=== PATIENT | female | born 1945 | race Caucasian/White ===

== ENCOUNTER 2017-12-10 13:36 | Inpatient (IN) | payer MEDICARE ==
[~2017-12-10] VITALS: Ht 162.6 cm; Wt 60.9 kg
[~2017-12-10 13:36] MED LIST: ASPI-515 PO; ASPI325T17 PO; ATOR40TA PO; CARV6.252 PO; CLOP75TA52 PO; DOCU-131 PO; ENOX40SY4 SQ; FAMO20TA7 PO; HYDR-3237 PO; HYDR-3241 PO; HYDR25TA6 PO; LISI40TA PO; LORA-446 PO; POLY17PO5 PO; SIMV20TA PO; SIMV20TA3 PO; VITAMIN B6
[2017-12-10] MEDS ORDERED: SODIUM CHLORIDE 0.9% 1,000 ML IV ONE (16:09)
[2017-12-10] MEDS ORDERED: SODIUM CHLORIDE FLUSH 10ML SYR IVF ONE (16:30)
[2017-12-10 16:42] LABS: BASOPHILS # (AUTO) 0.06 x10^3/uL (0-0.1); BASOPHILS % (AUTO) 1 % (0-1); EOSINOPHILS % (AUTO) 1 % (1-7); LYMPHOCYTES # (AUTO) 2.37 x10^3/uL (1-3.4); LYMPHOCYTES % (AUTO) 27 % (22-44); MD NO; MEAN CORPUSCULAR HEMOGLOBIN 34.4 pg (27.0-34.8); MEAN CORPUSCULAR HGB CONC 34.5 g/dL (32.4-35.8); MEAN CORPUSCULAR VOLUME 99.7 fL (80-100); MEAN PLATELET VOLUME 8.3 fL (7.4-10.4); MONOCYTES % (AUTO) 8 % (2-9); NEUTROPHILS % (AUTO) 63 % (42-75); PLATELET COUNT 263 x10^3/uL (130-400); RED CELL DISTRIBUTION WIDTH 13.5 % (9.6-15.2)
[2017-12-10 16:47] LABS: INTERNATIONAL NORMALIZED RATIO 0.9 (0.93-1.1); PROTHROMBIN TIME 9.4 Seconds (9.6-11.5)
[2017-12-10 16:52] LABS: ALBUMIN 3.9 g/dL (3.4-5.0); ANION GAP 7 mmol/L (5-15); CALCIUM 9.5 mg/dL (8.5-10.1); CHLORIDE 105 mmol/L (98-107); CREATININE 0.84 mg/dL (0.55-1.02)
[2017-12-10] MEDS ORDERED: DOCUSATE 100 MG CAPSULE PO PRN (18:00)
[2017-12-10] MEDS ORDERED: BISACODYL 10 MG SUPP PR PRN (18:00)
[2017-12-10] MEDS: ENOXAPARIN 40 MG/0.4 ML SQ SCH (18:00)
[2017-12-10] MEDS ORDERED: ENALAPRILAT 1.25 MG/ML, 2ML IVPush PRN (18:00)
[2017-12-10] MEDS ORDERED: POLYETHYLENE GLYCOL 17 GM PACKET PO PRN (18:00)
[2017-12-10] MEDS ORDERED: ACETAMINOPHEN 325 MG TABLET PO PRN (18:00)
[2017-12-10] MEDS ORDERED: ONDANSETRON 2MG/ML, 2ML IVPush PRN (18:00)
[2017-12-10] MEDS ORDERED: LORazepam 0.5MG TABLET PO PRN (18:00)
[2017-12-10] MEDS ORDERED: ENOXAPARIN 40 MG/0.4 ML ONE (18:25)
[2017-12-10 19:37] LABS: MICROSCOPIC NOT IND
[2017-12-10 19:39] LABS: CULTURE INDICATED? NO
[2017-12-10] MEDS: CARVEDILOL 6.25 MG TABLET PO SCH (21:03)
[2017-12-10] MEDS: ATORVASTATIN 40 MG TABLET PO SCH (21:03)
[2017-12-10] MEDS ORDERED: NS + 20MEQ KCL 1,000 ML IV SCH (22:00)
[2017-12-10 22:04] VITALS: BP 106/69
[2017-12-11 00:59] VITALS: BP 96/59
[2017-12-11 06:22] LABS: ANION GAP 8 mmol/L (5-15); CALCIUM 8.2 mg/dL (8.5-10.1); CHLORIDE 107 mmol/L (98-107); CREATININE 0.75 mg/dL (0.55-1.02)
[2017-12-11] MEDS ORDERED: POTASSIUM CHLORIDE 20 MEQ TAB.ER.PRT PO ONE (07:30)
[2017-12-11 07:57] VITALS: BP 122/72
[2017-12-11] MEDS: LISINOPRIL 20 MG TABLET PO SCH (08:43)
[2017-12-11] MEDS: CARVEDILOL 6.25 MG TABLET PO SCH ×2 (08:43→20:41)
[2017-12-11] MEDS: ASPIRIN 325 MG TABLET PO SCH (08:43)
[2017-12-11] MEDS: CLOPIDOGREL 75 MG TABLET PO SCH (08:44)
[2017-12-11] MEDS: POLYETHYLENE GLYCOL 17 GM PACKET PO SCH (08:44)
[2017-12-11 12:40] VITALS: BP 112/57
[2017-12-11] MEDS: ENOXAPARIN 40 MG/0.4 ML SQ SCH (17:19)
[2017-12-11 19:11] VITALS: BP 118/74
[2017-12-11] MEDS: ATORVASTATIN 40 MG TABLET PO SCH (20:42)
[2017-12-12 02:02] VITALS: BP 130/76
[2017-12-12 07:26] VITALS: BP 124/67
[2017-12-12] MEDS: ASPIRIN 325 MG TABLET PO SCH (08:04)
[2017-12-12] MEDS: LISINOPRIL 20 MG TABLET PO SCH (08:04)
[2017-12-12] MEDS: POLYETHYLENE GLYCOL 17 GM PACKET PO SCH (08:04)
[2017-12-12] MEDS: CARVEDILOL 6.25 MG TABLET PO SCH ×2 (08:05→20:13)
[2017-12-12] MEDS: CLOPIDOGREL 75 MG TABLET PO SCH (08:05)
[2017-12-12 14:49] VITALS: BP 101/65
[2017-12-12] MEDS: ENOXAPARIN 40 MG/0.4 ML SQ SCH (17:34)
[2017-12-12 20:11] VITALS: BP 132/68
[2017-12-12] MEDS: ATORVASTATIN 40 MG TABLET PO SCH (20:13)
[2017-12-13 03:36] VITALS: BP 124/71
[2017-12-13 07:31] VITALS: BP 158/83
[2017-12-13] MEDS: CLOPIDOGREL 75 MG TABLET PO SCH (07:38)
[2017-12-13] MEDS: CARVEDILOL 6.25 MG TABLET PO SCH (07:41)
[2017-12-13] MEDS: LISINOPRIL 20 MG TABLET PO SCH (07:41)
[2017-12-13] MEDS: ASPIRIN 325 MG TABLET PO SCH (07:41)
[2017-12-13] MEDS: POLYETHYLENE GLYCOL 17 GM PACKET PO SCH (07:41)
[2017-12-13 13:00] VITALS: BP 148/77
== END 2017-12-13 14:10 | DRG 535 ==
LOC: ED 16:23 → EDIP 17:43 → 4NOR 21:30
PROVIDERS: ADMIT Internal Medicine; ATTEND Internal Medicine
DX: S32.591A Other specified fracture of right pubis, initial encounter for closed fracture (principal); S32.401A Unspecified fracture of right acetabulum, initial encounter for closed fracture; I11.9 Hypertensive heart disease without heart failure; E78.00 Pure hypercholesterolemia, unspecified; W18.30XA Fall on same level, unspecified, initial encounter; E78.5 Hyperlipidemia, unspecified; Z66 Do not resuscitate; Z82.49 Family history of ischemic heart disease and other diseases of the circulatory system; Z83.3 Family history of diabetes mellitus; Z86.73 Personal history of transient ischemic attack (TIA), and cerebral infarction without residual deficits; Y93.89 Activity, other specified; Y92.89 Other specified places as the place of occurrence of the external cause
CPT/HCPCS: 36415; 71045; 80048; 81003; 82040; 85025; 85610; 85730; 99285; J1650; J2405; J3480; J7030